=== PATIENT | male | born 2000 | race African-American/Black ===

== ENCOUNTER 2023-08-23 21:13 | Emergency (ER) | payer SELFPAY ==
[~2023-08-23] VITALS: Ht 177.8 cm; Wt 65.0 kg
[2023-08-23 21:15] VITALS: TEMP 97.8; O2SAT 98
[2023-08-23 21:47] LABS: BASOPHILS % 0.8 % (0.0-2.0); HEMATOCRIT. 45.1 % (42.0-52.0); HEMOGLOBIN. 14.4 g/dL (14.0-18.0); LYMPHOCYTES % 22.5 % (20.0-50.0); MEAN CORPUSCULAR HEMOGLOBIN 27.8 pg (28.0-32.0); MEAN CORPUSCULAR VOLUME 86.9 fL (80.0-94.0); MEAN PLATELET VOLUME 9.2 fl (7.4-10.4); MONOCYTES % 5.3 % (2.0-8.0); NEUTROPHILS % 70.4 % (40.0-76.0); PLATELET 199 x1000/uL (130-400); RED BLOOD CELL COUNT 5.19 mill/uL (4.7-6.1); RED CELL DISTRIBUTION WIDTH 13.6 % (11.6-14.6); WHITE BLOOD COUNT 8.6 x1000/uL (4.5-11.0)
[2023-08-23] MEDS: ONDANSETRON HCL 4MG/2ML INJ IV STA (21:49)
[2023-08-23] MEDS: SODIUM CHLORIDE 0.9% 1,000 ML IV ONE (21:49)
[2023-08-23 21:57] LABS: ALANINE AMINOTRANSFERASE 25 IU/L (10-49); ALBUMIN 4.7 g/dL (3.2-4.8); ASPARTATE AMINOTRANSFERASE 21 IU/L (<34); BILIRUBIN TOTAL 0.6 mg/dL (0.1-1.0); CALCIUM 9.2 mg/dL (8.7-10.4); CARBON DIOXIDE 24 mEq/L (21-32); CHLORIDE 110 mEq/L (98-107); ETHANOL BLOOD 264 mg/dL (<10); GLUCOSE 99 mg/dL (70-105); POTASSIUM 3.8 mEq/L (3.5-5.1); PROTEIN TOTAL 7.7 g/dL (6.0-8.3); SODIUM 141 mEq/L (136-145); UREA NITROGEN BLOOD 12 mg/dL (9-23)
[2023-08-23 22:30] VITALS: BP 100/58; PULSE 69; RESP 24
== END 2023-08-23 23:49 | disposition home or self-care (01) ==
LOC: ER 21:13
DX: G93.40 Encephalopathy, unspecified (principal)
CPT/HCPCS: 80053; 80320; 85025; 36415; 96361; 96374; 99283; J2405; J7030; Z7610 ×2; G0480